=== PATIENT | female | born 1935 | race Asian ===

== ENCOUNTER 2017-07-06 15:04 | Emergency (ER) | payer MEDICARE, OTHER ==
[~2017-07-06] VITALS: Ht 144.8 cm; Wt 43.5 kg
[2017-07-06 16:07] VITALS: Ht 144.8 cm; Wt 43.5 kg
[2017-07-06 17:11] LABS: PLATELET COUNT 324 x10^3mcL (130-400)
[2017-07-06 17:18] LABS: BASOPHIL % 0 % (0-2); RED CELL DISTRIBUTION WIDTH 14.9 % (11.5-14.5)
[2017-07-06 17:19] LABS: CALCIUM 8.3 mg/dL (8.5-10.1); CARBON DIOXIDE 22.5 mmol/L (21-32); CHLORIDE SERUM 98 mmol/L (98-107); CREATININE SERUM 0.7 mg/dL (0.6-1.0); GLUCOSE SERUM 205 mg/dL (74-106); POTASSIUM SERUM 3.7 mmol/L (3.5-5.1); SODIUM SERUM 133 mmol/L (136-145)
[2017-07-06 17:23] LABS: ALBUMIN 3.5 g/dL (3.4-5.0); ALKALINE PHOSPHATASE 84 U/L (46-116); ALT/SGPT 17 U/L (14-59); AST/SGOT 21 U/L (15-37); BILIRUBIN TOTAL 0.33 mg/dL (0.20-1.00)
[2017-07-06 17:25] LABS: TOTAL PROTEIN, SERUM 8.5 g/dL (6.4-8.2)
[2017-07-06 18:08] LABS: UA SPECIFIC GRAVITY >=1.030 (1.005-1.035); microscopic required? YES; urine erythrocyte 3+ (NEGATIVE)
[2017-07-06] MEDS ORDERED: METFORMIN HCL500 MG PO (18:19)
[2017-07-06] MEDS ORDERED: JANUVIA100 M1 PO (18:19)
[2017-07-06] MEDS ORDERED: ROBL PO (18:20)
[2017-07-06 20:03] VITALS: BP 117/60
== END 2017-07-06 20:03 | disposition home or self-care (01) ==
LOC: ED 15:04
PROVIDERS: Emergency Medicine
DX: J11.1 Influenza due to unidentified influenza virus with other respiratory manifestations (principal); I10 Essential (primary) hypertension; E11.9 Type 2 diabetes mellitus without complications
CPT/HCPCS: 83880; 87804; J0696

== ENCOUNTER 2020-07-09 16:11 | Emergency (ER) | payer MEDICARE, OTHER ==
[~2020-07-09] VITALS: Ht 137.2 cm; Wt 36.7 kg
[~2020-07-09 16:11] MED LIST: JANUVIA100 M1 PO; METFORMIN HCL500 MG PO; ROBL PO
[2020-07-09 18:44] VITALS: BP 150/78
== END 2020-07-09 18:30 | disposition home or self-care (01) ==
LOC: ED 16:11
DX: S52.591A Other fractures of lower end of right radius, initial encounter for closed fracture (principal); I10 Essential (primary) hypertension; E11.9 Type 2 diabetes mellitus without complications; E78.00 Pure hypercholesterolemia, unspecified; W18.30XA Fall on same level, unspecified, initial encounter; Y93.89 Activity, other specified; Y92.89 Other specified places as the place of occurrence of the external cause; Y99.8 Other external cause status